=== PATIENT | female | born 1985 | race Caucasian/White ===

== ENCOUNTER 2017-01-09 14:20 | Emergency (ER) | payer OTHER | END 2017-01-09 15:00 | disposition home or self-care (01) | LOC: ER 14:20 | DX: B86 Scabies (principal); J45.909 Unspecified asthma, uncomplicated; F41.9 Anxiety disorder, unspecified; G40.909 Epilepsy, unspecified, not intractable, without status epilepticus; F17.210 Nicotine dependence, cigarettes, uncomplicated; Z91.040 Latex allergy status ==